=== PATIENT | female | born 1985 | race Caucasian/White ===

== ENCOUNTER 2023-09-25 17:44 | Emergency (ER) | payer OTHER ==
[2023-09-25 18:04] VITALS: BMI 25.5
[2023-09-25] MEDS ORDERED: ACETAMINOPHEN INJECTION 100 ML IVPB ONE (19:13)
[2023-09-25] MEDS: ACETAMINOPHEN 1000 MG/100 ML BAG IVPB ONE (19:40)
[2023-09-25 19:46] LABS: BASO % 0.7 % (0-2.0); EOS % 1.1 % (0-4.5); HEMATOCRIT 37.4 % (32.4-45.2); HEMOGLOBIN 12.5 GM/dL (10.7-15.3); MCH 26.2 pg (25.7-33.7); MCHC 33.3 g/dl (32.0-36.0); MEAN CELL VOLUME 78.8 fl (80-96); MEAN PLT VOLUME 7.5 fl (7.5-11.1); MONO % 8.9 % (3.8-10.2); NEUT % 75.3 % (42.8-82.8); PLATELET COUNT 333 10^3/uL (134-434); RBC 4.75 M/mm3 (3.60-5.2); RDW 14.5 % (11.6-15.6); WHITE BLOOD COUNT 5.2 K/mm3 (4.0-10.0)
[2023-09-25 20:13] LABS: ALBUMIN 4.2 g/dl (3.4-5.0); BLOOD UREA NITROGEN 14.1 mg/dL (7-18); CALCIUM 9.2 mg/dL (8.5-10.1)
[2023-09-25 20:17] LABS: TOT PROT 7.4 g/dl (6.4-8.2)
[2023-09-25 20:18] LABS: BILIRUBIN,TOTAL 0.2 mg/dL (0.2-1)
[2023-09-26] MEDS ORDERED: DALBAVANCIN HCL 500 MG VIAL (RESTRICTED TO ID ONLY) IVPB ONE (01:45)
[2023-09-26] MEDS: DALBAVANCIN HCL 1,500 MG in DEXTROSE 5%-WATER - 500 ML IVPB ONE (01:54)
[2023-09-26 02:20] VITALS: BP 113/68; PULSE 88; RESP 13; TEMP 98.5
== END 2023-09-26 02:53 | disposition home or self-care (01) ==
LOC: JER 17:44
PROC: 3E033NZ Introduction of Analgesics, Hypnotics, Sedatives into Peripheral Vein, Percutaneous Approach (ICD-10-PCS; 2023-09-25)
PROC: 3E03329 Introduction of Other Anti-infective into Peripheral Vein, Percutaneous Approach (ICD-10-PCS; principal; 2023-09-26)
DX: L98.499 Non-pressure chronic ulcer of skin of other sites with unspecified severity (principal); L02.211 Cutaneous abscess of abdominal wall
CPT/HCPCS: 36415; 74177-TC; 80053; 84703; 85025; 87040; 87070; 87205; 93005; 93010; 99285-25; J0131; J0875